=== PATIENT | male | born 1995 | race African-American/Black ===

== ENCOUNTER 2018-05-09 10:22 | Inpatient (IN) | payer BC ==
[~2018-05-09] VITALS: Ht 188 cm; Wt 104.4 kg
[2018-05-09 11:30] VITALS: BP 136/94
[2018-05-09] MEDS ORDERED: ACETAMINOPHEN 325 MG TABLET. PO PRN (13:30)
[2018-05-09] MEDS ORDERED: PRED20TA PO (13:41)
[2018-05-09] MEDS ORDERED: FURO20TA3 PO (13:42)
[2018-05-09 14:41] LABS: HEMATOCRIT 49.3 % (39.0-53.0); HEMOGLOBIN 16.9 g/dL (13.0-17.5); RED BLOOD COUNT 5.89 x10^6/uL (4.30-5.70); RED CELL DISTRIBUTION WIDTH 13.8 % (11.5-14.5); WHITE BLOOD COUNT 8.6 x10^3/uL (4.0-11.0)
[2018-05-09 15:00] VITALS: BP 134/90
[2018-05-09 15:02] LABS: ALBUMIN/GLOBULIN RATIO 0.3 (1.0-1.7); CALCIUM 8.1 mg/dL (8.5-10.1); CREATININE 1.1 mg/dL (0.7-1.3); GFR 100.4; POTASSIUM 3.8 mmol/L (3.5-5.1); TOTAL BILIRUBIN 0.4 mg/dL (0.2-1.0); TOTAL PROTEIN 4.5 g/dL (6.4-8.2)
[2018-05-09 19:00] VITALS: BP 145/93
[2018-05-09] MEDS: FUROSEMIDE 20 MG TABLET PO SCH (19:20)
[2018-05-09 19:40] LABS: BILIRUBIN,URINE NEGATIVE (NEG); CLARITY,URINE CLEAR; COLOR,URINE YELLOW; NITRITE,URINE NEGATIVE (NEG); PH,URINE 6.5; PROTEIN,URINE >=300 mg/dL (NEG-TRACE); UROBILINOGEN,URINE 0.2 mg/dL (0.2 mg/dL)
[2018-05-09 19:54] LABS: BACTERIA,URINE 0 /HPF (0-FEW)
[2018-05-09 19:55] LABS: HYALINE CASTS, URINE OCCASIONAL /HPF
[2018-05-09 23:00] VITALS: BP 143/87
[2018-05-10 03:00] VITALS: BP 138/82
[2018-05-10 07:00] VITALS: BP 141/89
[2018-05-10] MEDS: FUROSEMIDE 20 MG TABLET PO SCH (08:28)
[2018-05-10] MEDS ORDERED: FUROSEMIDE 20 MG TABLET PO SCH (09:00)
--- NOTE | 2018-05-10 10:07 | HP ---
ADMIT DATE: 05/10/2018 HISTORY OF PRESENT ILLNESS: The patient is a 22-year-old male patient who was seen yesterday and was admitted initially under Dr. 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 He apparently was diagnosed initially at the age of 13 at [facility] in [place] and was treated with steroids. He moved to [place], [place] where he was evaluated in [facility] and about 4 years ago he underwent another kidney biopsy, which showed that he has minimal change disease. He stopped all his medication about 18 months ago. He was on prednisone and Diovan and has been doing fine until 2 days ago when he started having nausea, vomiting and weight gain. He apparently gained almost 20 pounds, although he was weighed here yesterday and was weighing 234 pounds. He did complain of some nausea and vomited 2 days ago, but not yesterday. Denied any abdominal pain. Denied any dizziness or lightheadedness. PAST MEDICAL HISTORY: Significant for minimal change disease as well as hypertension. PAST SURGICAL HISTORY: Unremarkable. ALLERGIES: HE IS ALLERGIC TO LISINOPRIL HE DEVELOPED CHRONIC COUGH. MEDICATIONS: He is currently on no medication. FAMILY HISTORY: He has 3 sisters, one brother, all healthy. His father is alive at the age of 42 and has sarcoidosis. Mother is alive at age of 41 and is healthy. SOCIAL HISTORY: He is single, graduated from high school. He does not smoke, drink alcohol or use any recreational drugs. He is currently unemployed. REVIEW OF SYSTEMS: The patient denied any blurring of vision, cataract, glaucoma or macular degeneration. Denied any earache, tinnitus or sensorineural deafness. Denied any nosebleeds, stuffy nose or postnasal drip. Denied any sore throat, sore tongue, toothache, hoarseness of voice or difficulty swallowing. Did complain of some nausea and vomiting and has tendency towards constipation. Denied any hematemesis, melena or hematochezia. Denied any dysuria, frequency or hematuria. Denied any chest pain, shortness of breath, orthopnea or paroxysmal nocturnal dyspnea. Denied any cough, phlegm or hemoptysis. Denied any chills, rigors or fever. PHYSICAL EXAMINATION: GENERAL: When I saw him, he looked well and was clearly in no apparent respiratory distress. No pallor, jaundice, cyanosis, or thyromegaly. No jugular venous distention. I could not really see any lower limb edema. VITAL SIGNS: His heart rate was 73, blood pressure 145/93, temperature was 98.2, respiratory rate was 17 and oxygen saturation was 96% on room air. HEAD, EYES, EARS, NOSE AND THROAT: Showed normocephalic, atraumatic. NECK: Supple. HEART: Showed normal first and second heart sounds with no gallop, rub or murmur. CHEST: Clear to auscultation. No crepitation or rhonchi. ABDOMEN: Distended, soft, nontender. No guarding or rigidity. No organomegaly. All hernial orifices intact. Bowel sounds normal. NEUROLOGIC: He is awake, alert, responding appropriately. All cranial nerves intact. EXTREMITIES: He moves extremities without difficulty, ambulates without assistance or assistive devices. Examination of the lower extremities showed no clubbing, cyanosis, and I do not see really any edema on both lower extremities. His upper extremities seem to be more swollen than his lower extremities. LABORATORY DATA: Showed a serum sodium 136, potassium 3.8, chloride 102, bicarbonate 30, anion gap of 4, BUN 18, creatinine 1.1, estimated GFR was 100 mL per minute. His glucose was 93, calcium was 8.1. Total bilirubin and alkaline phosphatase normal. AST, ALT is slightly elevated. Total protein was 4.5, albumin was 1. His white cell count was 8600, hemoglobin 16.9, hematocrit 49.3, MCV 84 and platelet count 272,000. His urinalysis showed the urine was yellow, clear, his pH was 6.5, specific gravity was 1.020. There was large amount of protein. The urine was negative for glucose, ketones. There was moderate amount of blood, negative for nitrite and leukocyte esterase, 1-2 rbc's, 1-4 wbc's, and no bacteria. IMPRESSION: In summary, this is a 22-year-old male patient with known history of minimal change disease diagnosed when he was 13 years old. His last biopsy was done at [facility] in [place], [place] about 4 years ago and he stopped taking his steroids and Diovan about 18 months ago. He came now complaining of weight gain, nausea and vomiting, and high blood pressure. His urinalysis showed large amount of protein. He has also moderate amount of blood. PLAN: My plan is to get the records from [place], [place], also do a 24-hour urine for proteinuria and creatinine clearance as he seemed to have nephrotic syndrome as he has hematuria and his blood pressure is high, although his kidney functions are normal. He has severe hypoalbuminemia. We will consult the Nephrology team and decide on further management accordingly. RAJWINDER GARCIA MD DR: UMA/dustin JOB#: [id number] / [id number]
[2018-05-10 11:00] VITALS: BP 143/86
[2018-05-10 15:00] VITALS: BP 150/93
--- NOTE | 2018-05-10 16:16 | PDOC2 ---
CONSULT Date of Consult Date of Consult DATE: 05/10/18 TIME: 16:02 Reason for Consult Reason for Consult: Proteinuria, Dx of OSMANY Identification/Chief Complaint Chief Complaint Swelling both arms and back Source Source: Caregiver, Chart review, Patient History of Present Illness Reason for Visit: The patient is a 22-year-old male patient with Dx of OSMANY Dx at the age of 13 yrs . He gas been on prednisone and ws tapered off aprox 18 months ago when he was in [place] as he was in remission He was also on ARB which was dced by MD as per Pt and Mother as his BP was stable . They Moved to [facility] 18 months back and was seen by Dr. Manzo from our group in Mid 2017 . Mom reports they did not go back for Follow up appt as Urine was Normal and Pt was feeling fine He apparently was diagnosed initially at the age of 13 at [facility] in [place] He moved to [place], [place] where he was evaluated in [facility] and about 4 years ago he underwent another kidney biopsy, which showed that he has minimal change disease. He reports 2 days back he started having vomiting and thinks it was due to something he ate . His Mom claims that he eats out a Lot .No F/C/D. No CP . He apparently gained almost 20 pounds, weight here was 234 pounds, he reports his wt has been in 190's Denied any abdominal pain. Denied any dizziness or lightheadedness. No Vomiting today. Main concern is swelling in his arms- though in past he had LE edema. He feels Rt arm improved but Lt worse since IV placed He also feels swelling in his back- Flank and Lower back . No Pain /Tenderness He denies any Hx of Kidney stones . He denies any NSAID's , No OTC meds, Denies any Creatine or AA supplements His average BP is 120's without any meds Current Medications Current Medications Current Medications Acetaminophen (Tylenol) 650 mg PRN Q6HRS PRN PO MILD PAIN / TEMP Last administered on 05/09/18at 18:10; Start 05/09/18 at 13:30 Furosemide (Lasix) 20 mg DAILY PO ; Start 05/10/18 at 09:00; Stop 05/10/18 at 09 :00; Status DC Furosemide (Lasix) 20 mg DAILY PO Last administered on 05/10/18at 08:28; Start 05/09/18 at 18:15 Active Scripts Active Reported Furosemide 20 Mg Tablet 20 Mg PO DAILY Prednisone 20 Mg Tablet 20 Mg PO DAILY Allergies Allergies: Coded Allergies: lisinopril (Verified Allergy, Intermediate, 05/09/18) Wet cough ROS Review of System As per HPI Physical Exam Physical Exam GEN: NAD HEEN: OM moist NECK: Supple, No JVD CVS: RRR, No MGR RESP: CTA, No acc Muscle use GI: BS + ve, NO Bruit, Non Tender, Non Distended : No CVA tenderness, No Suprapubic Tenderness, No Huizar Skin- No rash Ext- Trace LE edema , Lt arm swollen > Rt (mild) Vital Signs Vital Signs Date Time Temp Pulse Resp B/P (MAP) Pulse Ox O2 Delivery O2 Flow Rate FiO2 05/10/18 15:00 97.7 62 20 150/93 (112) 95 Room Air 97.7 Assessment & Plan Minimal Change Disease- Dx at the age of 13, Renal Bx x 2 Was on prednisone , tapered approx 18 Months in [place] Moved to since, seen by Dr. Manzo once last year, didint go for Follow up appt Will obtain Office records and awaiting records from [place] [facility] reviewed , Creat within Normal range 24 Ur Pr in progress, Check US, Pr/Cr StrictI/O, daily standing weight HTN- BP High Not on meds Awaiting labs , will consider starting JENNIFER-I or ARB Lt Upper arm swelling - Order US Vomiting Resolved Likely Gastroenteritis Discussed at great length with patient, his Mom and RN Labs Labs Laboratory Tests Test 05/09/18 14:30 05/09/18 19:27 White Blood Count 8.6 x10^3/uL (4.0-11.0) Red Blood Count 5.89 x10^6/uL (4.30-5.70) Hemoglobin 16.9 g/dL (13.0-17.5) Hematocrit 49.3 % (39.0-53.0) Mean Corpuscular Volume 84 fL (79-100) Mean Corpuscular Hemoglobin 29 pg (25-35) Mean Corpuscular Hemoglobin Concent 34 g/dL (31-37) Red Cell Distribution Width 13.8 % (11.5-14.5) Platelet Count 272 x10^3/uL (140-400) Sodium Level 136 mmol/L (136-145) Potassium Level 3.8 mmol/L (3.5-5.1) Chloride Level 102 mmol/L (98-107) Carbon Dioxide Level 30 mmol/L (21-32) Anion Gap 4 (6-14) Blood Urea Nitrogen 18 mg/dL (8-26) Creatinine 1.1 mg/dL (0.7-1.3) Estimated GFR (Cockcroft-Gault) 100.4 BUN/Creatinine Ratio 16 (6-20) Glucose Level 93 mg/dL (70-99) Calcium Level 8.1 mg/dL (8.5-10.1) Total Bilirubin 0.4 mg/dL (0.2-1.0) Aspartate Amino Transf (AST/SGOT) 47 U/L (15-37) Alanine Aminotransferase (ALT/SGPT) 67 U/L (16-63) Alkaline Phosphatase 66 U/L (46-116) Total Protein 4.5 g/dL (6.4-8.2) Albumin 1.0 g/dL (3.4-5.0) Albumin/Globulin Ratio 0.3 (1.0-1.7) Urine Collection Type Unknown Urine Color Yellow Urine Clarity Clear Urine pH 6.5 Urine Specific [place] 1.020 Urine Protein >=300 mg/dL (NEG-TRACE) Urine Glucose (UA) Negative mg/dL (NEG) Urine Ketones (Stick) Negative mg/dL (NEG) Urine Blood Moderate (NEG) Urine Nitrite Negative (NEG) Urine Bilirubin Negative (NEG) Urine Urobilinogen Dipstick 0.2 mg/dL (0.2 mg/dL) Urine Leukocyte Esterase Negative (NEG) Urine RBC 1-2 /HPF (0-2) Urine WBC 1-4 /HPF (0-4) Urine Bacteria 0 /HPF (0-FEW) Urine Hyaline Casts Occasional /HPF Urine Random Total Protein 1484.0 mg/dL (Not Estab.) Laboratory Tests Test 05/09/18 19:27 Urine Collection Type Unknown Urine Color Yellow Urine Clarity Clear Urine pH 6.5 Urine Specific [place] 1.020 Urine Protein >=300 mg/dL (NEG-TRACE) Urine Glucose (UA) Negative mg/dL (NEG) Urine Ketones (Stick) Negative mg/dL (NEG) Urine Blood Moderate (NEG) Urine Nitrite Negative (NEG) Urine Bilirubin Negative (NEG) Urine Urobilinogen Dipstick 0.2 mg/dL (0.2 mg/dL) Urine Leukocyte Esterase Negative (NEG) Urine RBC 1-2 /HPF (0-2) Urine WBC 1-4 /HPF (0-4) Urine Bacteria 0 /HPF (0-FEW) Urine Hyaline Casts Occasional /HPF Urine Random Total Protein 1484.0 mg/dL (Not Estab.) Review All relevant outside records, renal labs, imaging studies, telemetry/EKG's were reviewed. АНДРЕЙ OLIVER MD May 10, 2018 16:16
[2018-05-10 19:00] VITALS: BP 159/98
[2018-05-10 21:11] LABS: UR PROTEIN RD 2390.1 mg/dL (Not Estab.)
[2018-05-10 23:00] VITALS: BP 145/98
[2018-05-11 03:00] VITALS: BP 130/90
[2018-05-11 07:00] VITALS: BP 130/86
[2018-05-11] MEDS: FUROSEMIDE 20 MG TABLET PO SCH (07:36)
--- NOTE | 2018-05-11 08:18 | RAD ---
Left upper extremity venous ultrasound, 05/10/2018: HISTORY: Left upper extremity swelling Duplex evaluation of the major veins in the left upper extremity was performed including grayscale, color-flow and spectral Doppler analysis. The left internal jugular, subclavian, axillary, brachial, cephalic and basilic veins are all patent. Patent ulnar and radial veins are evident. IMPRESSION: There is no duplex evidence of deep vein thrombosis in left upper extremity. Electronically signed by: Terrell Potter MD (05/11/2018 8:14 AM) [facility]
--- NOTE | 2018-05-11 08:23 | RAD ---
Renal ultrasound, 05/10/2018: HISTORY: Proteinuria The right kidney measures 12.7 cm while the left kidney measures 12.9 cm. There is no evidence of hydronephrosis or a renal mass. The renal parenchymal echogenicity is within normal limits. The bladder is collapsed and not adequately delineated. IMPRESSION: No significant renal abnormality is detected. Electronically signed by: Terrell Potter MD (05/11/2018 8:19 AM) [facility]
--- NOTE | 2018-05-11 09:16 | PN ---
DATE: 05/11/2018 SUBJECTIVE: The patient is resting slightly propped up in bed, in no apparent distress. Continued to collect his 24-hour urine for proteinuria and creatinine clearance. Denied any complaint. He has had renal ultrasound, which showed that his right kidney measured 12.7 cm while the left kidney measured 12.9 cm. There is no evidence of hydronephrosis or renal mass. The renal parenchyma or echogenicity is within normal limits. The ultrasound of his left upper extremity showed no evidence of deep vein thrombosis. OBJECTIVE: GENERAL: On examining him, he looked pale. No jaundice, cyanosis, or thyromegaly. No jugular venous distention. No limb edema. VITAL SIGNS: His heart rate was 83, blood pressure was 130/86, temperature was 97.8, respiratory rate was 16, and oxygen saturation was 93% on room air. The rest of clinical exam is unremarkable, has not really changed. PLAN: To continue with Lasix. Await 24-hour urine collection. RAJWINDER GARCIA MD DR: UMA/dustin JOB#: [id number] / [id number]
[2018-05-11 11:02] VITALS: BP 139/97
[2018-05-11 11:04] LABS: ALBUMIN 0.7 g/dL (3.4-5.0); CALCIUM 7.6 mg/dL (8.5-10.1); CREATININE 1.3 mg/dL (0.7-1.3); GFR 82.8; PHOSPHORUS 4.2 mg/dL (2.6-4.7)
--- NOTE | 2018-05-11 13:18 | PDOC ---
SUBJECTIVE ROS No complaints, swelling improved, eating Lunch OBJECTIVE Vital Signs Vital Signs Date Time Temp Pulse Resp B/P (MAP) Pulse Ox O2 Delivery O2 Flow Rate FiO2 05/11/18 11:02 98.7 74 20 139/97 (111) 94 Room Air 98.7 I & 0 Intake and Output 05/11/18 07:00 Intake Total 840 ml Balance 840 ml Intake Oral 840 ml # Voids 2 PHYSICAL EXAM Physical Exam GEN: NAD HEEN: OM moist NECK: Supple, No JVD CVS: RRR, No MGR RESP: CTA, No acc Muscle use GI: BS + ve, NO Bruit, Non Tender, Non Distended : No CVA tenderness, No Suprapubic Tenderness, No Huizar Skin- No rash Ext- No edema DIAGNOSIS/ASSESSMENT Assessment & Plan Minimal Change Disease- Dx at the age of 13, Renal Bx x 2 Was on prednisone , tapered approx 18 Months in [place] Non compliance in 2014 - when he moved to [place] - had recurrence of OSMANY Was started on prednisone 90 mg QD , prior to that he was on tacrolimus and Steroids at age of 14-15 yrs Moved to since, seen by Dr. Manzo once last year, didint go for Follow up appt Pr/Cr 10 gm , 24 Hr pending , Creat upto 1.3, Severe Hypoalbuminemia Will start Prednisone PO- close to 1 mg/kg /day (90 mg QD), monitor closely CKD stage 2- increased Cr from baseline Plan as above HTN- BP better Not on meds will consider starting JENNIFER-I or ARB Lt Upper arm swelling - US No DVT Resolved Vomiting Resolved Likely Gastroenteritis Discussed at great length with patient, Mom and RN COMMENT/RELEVANT DATA Meds Current Medications Medications (Trade) Dose Ordered Sig/Mushtaq Start Time Stop Time Status Last Admin Dose Admin Acetaminophen (Tylenol) 650 mg PRN Q6HRS PRN 05/09/18 13:30 05/09/18 18:10 650 MG Furosemide (Lasix) 20 mg DAILY 05/09/18 18:15 05/11/18 07:36 20 MG Lab Laboratory Tests Test 05/11/18 10:25 Sodium Level 135 mmol/L (136-145) Potassium Level 4.0 mmol/L (3.5-5.1) Chloride Level 102 mmol/L (98-107) Carbon Dioxide Level 31 mmol/L (21-32) Anion Gap 2 (6-14) Blood Urea Nitrogen 22 mg/dL (8-26) Creatinine 1.3 mg/dL (0.7-1.3) Estimated GFR (Cockcroft-Gault) 82.8 Glucose Level 98 mg/dL (70-99) Calcium Level 7.6 mg/dL (8.5-10.1) Phosphorus Level 4.2 mg/dL (2.6-4.7) Albumin 0.7 g/dL (3.4-5.0) Results All relevant outside records, renal labs, imaging studies, telemetry/EKG's were reviewed. АНДРЕЙ OLIVER MD May 11, 2018 13:18
[2018-05-11] MEDS: PANTOPRAZOLE 40 MG TABLET.DR. PO SCH (13:36)
[2018-05-11] MEDS: predniSONE 20 MG TABLET PO SCH (13:38)
[2018-05-11 15:04] VITALS: BP 134/80
[2018-05-11 19:00] VITALS: BP 145/91
[2018-05-11 23:00] VITALS: BP 141/102
[2018-05-12 02:19] LABS: TOTAL SERUM CREATININE 1.04 mg/dL (0.76-1.27); TOTAL URINE CREATININE 168.8 mg/dL (Not Estab.)
[2018-05-12 03:02] VITALS: BP 154/102
[2018-05-12 07:00] VITALS: BP 144/93
[2018-05-12 07:38] LABS: UR PROTEIN 1692.3 mg/dL (Not Estab.)
[2018-05-12] MEDS: PANTOPRAZOLE 40 MG TABLET.DR. PO SCH (08:44)
[2018-05-12] MEDS: FUROSEMIDE 20 MG TABLET PO SCH (08:44)
[2018-05-12] MEDS: predniSONE 20 MG TABLET PO SCH (08:45)
--- NOTE | 2018-05-12 10:13 | PN ---
DATE: 05/12/2018 SUBJECTIVE: The patient is resting, slightly propped up in bed, eating his breakfast comfortably. On questioning him, he obviously is concerned about his blood pressure which is trending upward. He was started yesterday on prednisone at 90 mg daily. His 24-hour urine collection was completed yesterday; however, I am not really sure exactly how to read the results, it seems that he is losing a huge amount of protein up to 22 grams in 24-hour if my reading is accurate. PHYSICAL EXAMINATION: GENERAL: When I examined him this morning, he looked well and was clearly in no apparent respiratory distress, pale. No jaundice, cyanosis, or thyromegaly. No jugular venous distension. No limb edema. VITAL SIGNS: His heart rate was 96, blood pressure 144/93, temperature was 97.6, respiratory rate was 20, and oxygen saturation was 96%. HEAD, EYES, EARS, NOSE AND THROAT: Normocephalic, atraumatic. The rest of clinical exam is unremarkable. LABORATORY DATA: His most recent lab work as of yesterday showed his serum sodium 135, potassium 4, chloride 102, bicarbonate 31, anion gap of 2, BUN of 22, creatinine 1.3, his estimated GFR was 82 mL per minute. His glucose was 98, calcium was 7.6, phosphorus was 4.2. His serum albumin is only 0.7 g/dL. ASSESSMENT: Minimal change disease, nephrotic syndrome and relapse with nephrotic range proteinuria, for which he was started on a prednisone 90 mg once a day, Protonix as well as furosemide. Blood pressure is high and he apparently has problems with lisinopril before as he developed chronic cough. I will wait for the recommendation by the research manufacturing operator. RAJWINDER GARCIA MD DR: UMA/dustin JOB#: [id number] / [id number]
[2018-05-12 11:00] VITALS: BP 140/94
[2018-05-12 13:16] LABS: ALBUMIN 0.9 g/dL (3.4-5.0); CREATININE 2.6 mg/dL (0.7-1.3); GFR 37.2; PHOSPHORUS 4.7 mg/dL (2.6-4.7); POTASSIUM 4.9 mmol/L (3.5-5.1)
[2018-05-12 13:17] LABS: CHOLESTEROL/HDL RATIO 8.3
[2018-05-12 15:00] VITALS: BP 138/83
--- NOTE | 2018-05-12 16:25 | PDOC ---
SUBJECTIVE ROS No complaints, OBJECTIVE Vital Signs Vital Signs Date Time Temp Pulse Resp B/P (MAP) Pulse Ox O2 Delivery O2 Flow Rate FiO2 05/12/18 11:00 97.1 82 20 140/94 (109) 98 Room Air 97.1 I & 0 Intake and Output 05/12/18 07:00 Intake Total 480 ml Balance 480 ml Intake Oral 480 ml # Voids 6 PHYSICAL EXAM Physical Exam GEN: NAD HEEN: OM moist NECK: Supple, No JVD CVS: RRR, No MGR RESP: CTA, No acc Muscle use GI: BS + ve, NO Bruit, Non Tender, Non Distended : No CVA tenderness, No Suprapubic Tenderness, No Huizar Skin- No rash Ext- No edema DIAGNOSIS/ASSESSMENT Assessment & Plan Minimal Change Disease- Dx at the age of 13, Renal Bx x 2 Was on prednisone , tapered approx 18 Months in [place] Non compliance in 2014 - when he moved to [place] - had recurrence of OSMANY ( Dont have Bx report in Chart ) He Was started on prednisone 90 mg QD , prior to that he was on tacrolimus and Steroids at age of 14-15 yrs Moved to since, seen by Dr. Manzo once last year, as per mom they didn't keep Follow up appt Pr/Cr 10 gm , 24 Hr Pr 22 gm , Creat upto 2.6<--1.3, Severe Hypoalbuminemia , Hypercholesterolemia Started Prednisone PO- 90 mg QD- 1 st dose 05/11 Based on labs Today recommend Renal Bx dw [facility], but Pt wants his mother to make the decision She called back and wants to hold off the renal Bx . She will make decision when she arrives here . She states "he is not a Guinea pig and Treatment can be continued based on his Bx results from [place] " At the time of initial consult I had discussed with at great length Dx and Treatment Options including Steroids and Renal Bx . Initially she claimed that he doesn't need Steroids as she doesn't think he is having a relapse . Yesterday very reluctantly they agreed for PO Prednisone Mom arrived and I had a Lengthy discussion regarding Renal Bx, meds, serologies , prognosis etc . Both Refusing renal bx as well as IV steroids , they want to wait to see response with PO steroids They refused any further Work up including PT/INR. Hyperlipidemia - Start Statin SERGIO - Worsening renal function Has been on Lasix as per primary, DC lasix HTN- Not on meds will consider starting JENNIFER-I or ARB but currently SERGIO Monitor Lt Upper arm swelling - US No DVT Resolved Vomiting Resolved Discussed at great length with patient, Mom and RN COMMENT/RELEVANT DATA Meds Current Medications Medications (Trade) Dose Ordered Sig/Mushtaq Start Time Stop Time Status Last Admin Dose Admin Acetaminophen (Tylenol) 650 mg PRN Q6HRS PRN 05/09/18 13:30 05/09/18 18:10 650 MG Furosemide (Lasix) 20 mg DAILY 05/09/18 18:15 05/12/18 08:44 20 MG Pantoprazole Sodium (Protonix) 40 mg DAILYAC 05/11/18 13:15 05/12/18 08:44 40 MG Prednisone (Prednisone) 90 mg DAILY 05/11/18 14:00 05/17/18 13:59 05/12/18 08:45 90 MG Lab Laboratory Tests Test 05/12/18 11:55 Sodium Level 134 mmol/L (136-145) Potassium Level 4.9 mmol/L (3.5-5.1) Chloride Level 100 mmol/L (98-107) Carbon Dioxide Level 30 mmol/L (21-32) Anion Gap 4 (6-14) Blood Urea Nitrogen 39 mg/dL (8-26) Creatinine 2.6 mg/dL (0.7-1.3) Estimated GFR (Cockcroft-Gault) 37.2 Glucose Level 115 mg/dL (70-99) Calcium Level 8.0 mg/dL (8.5-10.1) Phosphorus Level 4.7 mg/dL (2.6-4.7) Albumin 0.9 g/dL (3.4-5.0) Triglycerides Level 245 mg/dL (0-150) Cholesterol Level 539 mg/dL (0-200) LDL Cholesterol, Calculated 425 mg/dL (0-100) VLDL Cholesterol, Calculated 49 mg/dL (0-40) Non-HDL Cholesterol Calculated 474 mg/dL (0-129) HDL Cholesterol 65 mg/dL (40-60) Cholesterol/HDL Ratio 8.3 Results All relevant outside records, renal labs, imaging studies, telemetry/EKG's were reviewed. АНДРЕЙ OLIVER MD May 12, 2018 16:25
[2018-05-12 19:00] VITALS: BP 136/80
[2018-05-12 22:36] VITALS: BP 139/99
[2018-05-13 02:40] VITALS: BP 142/81
[2018-05-13 07:00] VITALS: BP 141/96
[2018-05-13] MEDS: PANTOPRAZOLE 40 MG TABLET.DR. PO SCH (07:43)
[2018-05-13] MEDS: predniSONE 20 MG TABLET PO SCH (07:44)
[2018-05-13 11:00] VITALS: BP 155/94
--- NOTE | 2018-05-13 12:25 | PN ---
DATE: 05/13/2018 SUBJECTIVE: The patient is resting slightly propped up in bed, in no apparent respiratory distress. He is awake, alert. Denied any complaint. Apparently, Dr. Coombs recommended kidney biopsy, but the patient and his mother refused stating that he is not and treatment can be continued based on his biopsy results from [facility]. However, he has now had hematuria. His blood pressure is high and they also refused IV steroids and reluctantly agreed to p.o. prednisone. His blood pressure continues to be somewhat high and apparently, reacted to lisinopril, so I will start him on losartan 25 mg and see how he responds to that. PHYSICAL EXAMINATION: GENERAL: When I saw him today, he looked well and was clearly in no apparent respiratory distress. VITAL SIGNS: His heart rate was 80, blood pressure was 141/96, temperature was 97.7, respiratory rate 20 and oxygen saturation was 96%. HEENT: Examination of the head, eyes, ears, nose and throat showed normocephalic, atraumatic. NECK: Supple. HEART: Showed normal first and second heart sounds, with no gallop, rub or murmur. CHEST: Clear to auscultation. No crepitation or rhonchi. ABDOMEN: Distended, soft and nontender. No guarding or rigidity. No organomegaly. All hernial orifices intact. Bowel sounds normal. NEUROLOGIC: He was awake, alert and responding appropriately. All cranial nerves intact. He moves extremities without difficulty, ambulates without assistance or assistive devices. His intake was 1414, output recorded. LABORATORY DATA: His most recent lab work as of yesterday showed a serum sodium 134, potassium 4.9, chloride 100, bicarbonate 30, anion gap of 4, BUN 36, creatinine 2.6, estimated GFR was 37 mL per minute, his glucose was 115 and calcium was 8. Phosphorus was 4.7. His serum albumin was only 0.9. His triglycerides were 245, total cholesterol was 539, LDL cholesterol was 425 and HDL cholesterol of 65; the ratio was 8. His estimated GFR as of 2 days ago was 116, but his creatinine has dramatically risen from 1.1 to 2.6. ASSESSMENT: 1. Acute kidney injury. 2. Nephrotic syndrome. 3. Hypertension. 4. His left upper extremity was swollen, but his ultrasound was negative. PLAN: My plan is to obviously consider also DVT prophylaxis, but I will repeat his labs tomorrow to make sure his kidney function is not worsening. RAJWINDER GARCIA MD DR: UMA/dustin JOB#: [id number] / [id number]
--- NOTE | 2018-05-13 13:30 | PDOC ---
PROGRESS NOTES Subjective Subjective I was informed by the patient's nurse that they wished to leave the hospital AMA. Hence patient was not seen. No labs are available for review today Objective Objective Vital Signs Date Time Temp Pulse Resp B/P (MAP) Pulse Ox O2 Delivery O2 Flow Rate FiO2 05/13/18 11:00 97.8 79 20 155/94 (114) 94 Room Air 97.8 Intake and Output 05/13/18 07:00 Intake Total 1440 ml Balance 1440 ml Intake Oral 1440 ml # Voids 5 # Bowel Movements 3 Comment Review of Relevant I have reviewed the following items stacia (where applicable) has been applied. Labs Laboratory Tests Test 05/12/18 11:55 Sodium Level 134 mmol/L (136-145) Potassium Level 4.9 mmol/L (3.5-5.1) Chloride Level 100 mmol/L (98-107) Carbon Dioxide Level 30 mmol/L (21-32) Anion Gap 4 (6-14) Blood Urea Nitrogen 39 mg/dL (8-26) Creatinine 2.6 mg/dL (0.7-1.3) Estimated GFR (Cockcroft-Gault) 37.2 Glucose Level 115 mg/dL (70-99) Calcium Level 8.0 mg/dL (8.5-10.1) Phosphorus Level 4.7 mg/dL (2.6-4.7) Albumin 0.9 g/dL (3.4-5.0) Triglycerides Level 245 mg/dL (0-150) Cholesterol Level 539 mg/dL (0-200) LDL Cholesterol, Calculated 425 mg/dL (0-100) VLDL Cholesterol, Calculated 49 mg/dL (0-40) Non-HDL Cholesterol Calculated 474 mg/dL (0-129) HDL Cholesterol 65 mg/dL (40-60) Cholesterol/HDL Ratio 8.3 Medications Current Medications Acetaminophen (Tylenol) 650 mg PRN Q6HRS PRN PO MILD PAIN / TEMP Last administered on 05/09/18at 18:10; Start 05/09/18 at 13:30 Furosemide (Lasix) 20 mg DAILY PO ; Start 05/10/18 at 09:00; Stop 05/10/18 at 09 :00; Status DC Furosemide (Lasix) 20 mg DAILY PO Last administered on 05/12/18at 08:44; Start 05/09/18 at 18:15; Stop 05/12/18 at 16:12; Status DC Prednisone (Prednisone) 90 mg DAILY PO Last administered on 05/13/18at 07:44; Start 05/11/18 at 14:00; Stop 05/17/18 at 13:59 Pantoprazole Sodium (Protonix) 40 mg DAILYAC PO Last administered on 05/13/18at 07:43; Start 05/11/18 at 13:15 Active Scripts Active Reported Furosemide 20 Mg Tablet 20 Mg PO DAILY Prednisone 20 Mg Tablet 20 Mg PO DAILY Vitals/I & O Vital Sign - Last 24 Hours 05/12/18 05/12/18 05/12/18 05/12/18 15:00 19:00 20:00 22:36 Temp 98.0 97.7 97.5 98.0 97.7 97.5 Pulse 89 74 72 Resp 20 18 18 B/P (MAP) 138/83 (101) 136/80 (98) 139/99 (112) Pulse Ox 97 99 98 O2 Delivery Room Air Room Air Room Air Room Air 05/13/18 05/13/18 05/13/18 05/13/18 02:40 07:00 08:00 11:00 Temp 97.5 97.7 97.8 97.5 97.7 97.8 Pulse 81 80 79 Resp 18 20 20 B/P (MAP) 142/81 (101) 141/96 (111) 155/94 (114) Pulse Ox 96 96 94 O2 Delivery Room Air Room Air Room Air Room Air Intake and Output 05/12/18 05/12/18 05/13/18 15:00 23:00 07:00 Intake Total 200 ml 240 ml 1000 ml Balance 200 ml 240 ml 1000 ml CATE FIGUEROA MD May 13, 2018 13:30
== END 2018-05-13 13:30 | disposition left against medical advice (07) | DRG 684 ==
LOC: 5 SOUTH 11:14
PROVIDERS: ADMIT Internal Medicine; ATTEND Internal Medicine
DX: N17.9 Acute kidney failure, unspecified (principal); N04.0 Nephrotic syndrome with minor glomerular abnormality; I10 Essential (primary) hypertension; E88.09 Other disorders of plasma-protein metabolism, not elsewhere classified; Z53.21 Procedure and treatment not carried out due to patient leaving prior to being seen by health care provider; Z88.8 Allergy status to other drugs, medicaments and biological substances; Z79.899 Other long term (current) drug therapy
CPT/HCPCS: 36415; 76770; 80053; 80061; 80069; 81001; 82570; 82575; 84156; 85027; 93971; J7512

== ENCOUNTER 2018-05-24 06:49 | Outpatient (CLI) | payer BC ==
[~2018-05-24] VITALS: Ht 188 cm; Wt 104.3 kg
[2018-05-24] VITALS (18 sets, daily range): BP systolic 143–162; BP diastolic 88–105
[~2018-05-24 06:49] MED LIST: FURO20TA3 PO; PRED20TA PO
[2018-05-24 07:31] LABS: BASO # 0.1 x10^3/uL (0.0-0.2); BASO % 1 % (0-3); EOS # 0.4 x10^3/uL (0.0-0.7); EOS % 4 % (0-3); HEMATOCRIT 43.7 % (39.0-53.0); LYMPH # 2.8 x10^3/uL (1.0-4.8); LYMPH % 31 % (24-48); MEAN CORPUSCULAR HEMOGLOBIN 29 pg (25-35); MEAN CORPUSCULAR HGB CONC 34 g/dL (31-37); MEAN CORPUSCULAR VOLUME 84 fL (79-100); MONO # 0.6 x10^3/uL (0.0-1.1); MONO % 6 % (0-9); NEUT # 5.1 x10^3uL (1.8-7.7); NEUT % 57 % (31-73); PLATELET COUNT 351 x10^3/uL (140-400); RED BLOOD COUNT 5.21 x10^6/uL (4.30-5.70); RED CELL DISTRIBUTION WIDTH 13.7 % (11.5-14.5); WHITE BLOOD COUNT 8.9 x10^3/uL (4.0-11.0)
[2018-05-24 07:40] LABS: PROTHROMBIN TIME PATIENT 12.1 SEC (11.7-14.0)
[2018-05-24] MEDS ORDERED: LIDOCAINE WITH 8.4% SOD BICARB 3 ML DISP.SYRIN. ONE (07:54)
[2018-05-24] MEDS ORDERED: GELATIN SPONGE SIZE 12-7MM SPONGE. ONE (07:54)
[2018-05-24] MEDS ORDERED: fentaNYL PF VIAL 100 MCG/2 ML VIAL ONE (07:54)
[2018-05-24] MEDS ORDERED: MIDAZOLAM HCL/PF 2 MG/2 ML VIAL. ONE (07:54)
[2018-05-24] MEDS ORDERED: fentaNYL PF VIAL 100 MCG/2 ML VIAL IV ONE (08:15)
[2018-05-24] MEDS ORDERED: MIDAZOLAM HCL/PF 2 MG/2 ML VIAL. IV ONE (08:15)
[2018-05-24] MEDS ORDERED: GELATIN SPONGE SIZE 12-7MM SPONGE. TP ONE (08:15)
[2018-05-24] MEDS ORDERED: LIDOCAINE WITH 8.4% SOD BICARB 3 ML DISP.SYRIN. IJ ONE (08:15)
--- NOTE | 2018-05-24 09:59 | PDOC ---
MODERATE SEDATION ASSESSMENT RISKS/ALTERNATIVES Risks/Alternatives Risks and alternatives of this type of sedation and procedure discussed with: RISK/ALTERNATIVES: Patient H & P ON CHART H & P H & P on chart and reviewed for co-morbid conditions and appropriate labs. H&P ON CHART: Yes STATUS PREG STATUS ASSESSED: Yes MEDS/ALLERGIES REVIEWED Meds/Allergies Reviewed Medications and Allergies including time and route of recently administered narcotics and sedatives. MEDS/ALLERGIES REVIEWED: Yes ASA RATING ASA RATING: II AIRWAY ASSESSMENT Airway Assessment Airway patency, oral function limitations, presence of caps, crowns, dentures, partials, and ability to extend neck assessed. AIRWAY ASSESSMENT: Yes MALLAMPATI SCORE MALLAMPATI SCORE: II PRE-SEDATION ASSESSMENT PRE-SEDATION ASSESSMENT: Yes BERNARD LEVY MD May 24, 2018 09:59
--- NOTE | 2018-05-24 10:00 | PDOC1 ---
History and Physical Date of Procedure Date of Admission History of Present Illness Reason for Visit renal failure Past Medical History Past Medical History see nursing pre-op assessment Current Medications Current Medications Current Medications Lidocaine/Sodium Bicarbonate (Buffered Lidocaine 1%) 3 ml STK-MED ONCE .ROUTE ; Start 05/24/18 at 07:54; Stop 05/24/18 at 07:55; Status DC Midazolam HCl (Versed) 2 mg STK-MED ONCE .ROUTE ; Start 05/24/18 at 07:54; Stop 05/24/18 at 07:56; Status DC Fentanyl Citrate (Fentanyl 2ml Vial) 100 mcg STK-MED ONCE .ROUTE ; Start at 07:54; Stop 05/24/18 at 07:56; Status DC Gelatin (Gelfoam Size 12-7mm) 1 each STK-MED ONCE .ROUTE ; Start 05/24/18 at 07:54; Stop 05/24/18 at 07:56; Status DC Lidocaine/Sodium Bicarbonate (Buffered Lidocaine 1%) 3 ml 1X ONCE IJ Last administered on 05/24/18at 09:01; Start 05/24/18 at 08:15; Stop 05/24/18 at 08 :18; Status DC Midazolam HCl (Versed) 2 mg 1X ONCE IV Last administered on 05/24/18at 09:01; Start 05/24/18 at 08:15; Stop 05/24/18 at 08:18; Status DC Fentanyl Citrate (Fentanyl 2ml Vial) 100 mcg 1X ONCE IV Last administered on 05/24/18at 09:01; Start 05/24/18 at 08:15; Stop 05/24/18 at 08:18; Status DC Gelatin (Gelfoam Size 12-7mm) 1 each 1X ONCE TP Last administered on at 09:00; Start 05/24/18 at 08:15; Stop 05/24/18 at 08:18; Status DC Active Scripts Active No Active Prescriptions or Reported Medications Allergies Allergies: Coded Allergies: lisinopril (Verified Allergy, Intermediate, 05/09/18) Wet cough Physical Exam Vital Signs Vital Signs Date Time Temp Pulse Resp B/P (MAP) Pulse Ox O2 Delivery O2 Flow Rate FiO2 05/24/18 09:55 67 16 95 Room Air 05/24/18 09:08 2.0 05/24/18 07:32 98.1 150/96 (114) 98.1 Other see nursing assessment Assessment Assessment renal failure Plan Plan US biopsy BERNARD LEVY MD May 24, 2018 10:00
--- NOTE | 2018-05-24 15:29 | RAD ---
Procedure: Ultrasound-guided left renal biopsy Clinical Indication: Adult male with abnormal renal function Sedation: Conscious sedation was administered with a total intraprocedural kgwv-dm-gydw time of 22 minutes. The patient was monitored by a qualified independent observer throughout the time of sedation. Please refer to the medical record for exact doses of medications utilized to achieve moderate sedation. Antibiotics: None Sterility: The procedure was performed in its entirety using appropriate elements of sterile technique. Consent: The procedure was explained in its entirety to the patient or the patients designated student services representative by a member of the treatment team, including a discussion of the risks, benefits and commonly accepted alternatives to the procedure, as well as the expected consequences of no therapy whatsoever. Discussion of the risks included, but was not limited to, those that are most frequent and those that are rare but possibly severe or life-threatening, as well as the possibility of unforeseen complications. Technique and Findings: Following informed consent, the patient was prepped and draped in the usual sterile fashion. Ultrasound interrogation of the left kidney revealed no hydronephrosis. 1% lidocaine was used to achieve local anesthesia. A small dermatotomy was made. Under ultrasound guidance, a 17-gauge guide was advanced into the posterior inferior pole and 8 separate 18-gauge core biopsy specimens were obtained from various regions of the inferior pole. Specimens were divided between Ken's solution and formalin. Gelfoam pledgets were applied as the needle guide was removed and hemostasis was achieved with manual compression. Complications: No immediate Impression: 1. Ultrasound-guided biopsy of the left kidney as described
--- NOTE | 2018-05-24 15:38 | RAD ---
Procedure: Ultrasound-guided left renal biopsy Clinical Indication: Adult male with abnormal renal function Sedation: Conscious sedation was administered with a total intraprocedural owhz-hf-mosy time of 22 minutes. The patient was monitored by a qualified independent observer throughout the time of sedation. Please refer to the medical record for exact doses of medications utilized to achieve moderate sedation. Antibiotics: None Sterility: The procedure was performed in its entirety using appropriate elements of sterile technique. Consent: The procedure was explained in its entirety to the patient or the patients designated member services representative by a member of the treatment team, including a discussion of the risks, benefits and commonly accepted alternatives to the procedure, as well as the expected consequences of no therapy whatsoever. Discussion of the risks included, but was not limited to, those that are most frequent and those that are rare but possibly severe or life-threatening, as well as the possibility of unforeseen complications. Technique and Findings: Following informed consent, the patient was prepped and draped in the usual sterile fashion. Ultrasound interrogation of the left kidney revealed no hydronephrosis. 1% lidocaine was used to achieve local anesthesia. A small dermatotomy was made. Under ultrasound guidance, a 17-gauge guide was advanced into the posterior inferior pole and 8 separate 18-gauge core biopsy specimens were obtained from various regions of the inferior pole. Specimens were divided between Ken's solution and formalin. Gelfoam pledgets were applied as the needle guide was removed and hemostasis was achieved with manual compression. Complications: No immediate Impression: 1. Ultrasound-guided biopsy of the left kidney as described DICTATED and SIGNED BY: BERNARD LEVY MD DATE: 05/24/18 1523 [facility]
--- NOTE | 2018-05-29 15:07 | PATHOLOGY ---
[facility] Accession Number: [id number] . 01 Material submitted: . IMAGE GUIDED RENAL BIOPSY . 01 Clinical history: . Nephrotic syndrome . 02 Diagnosis: Special studies report received from [facility] [employer] [facility], [address] [place] [address], [facility] [address] [address], on case [id number], labeled with their number [id number], dated 05/26/2018. . Specimen submitted: By Allyn Manzo MD For Kidney, biopsy . DIAGNOSIS: Consistent with Minimal Change Disease. . Global Glomerulosclerosis (). . Clinical History: The patient is a 22 year-old male who presents for evaluation of relapse of his minimal change disease. The patient was diagnosed with minimal change disease at age 13. The patient stopped all of his medications about 18 months ago. Lab evaluation reveals a creatinine of 1.1. Urinalysis reveals proteinuria. . Gross Description: Received from [facility] via [facility] are two specimen bottles; one bottle contains formalin and the other contains Eduard's fixative. The bottles are labeled with the patient's name (Rajiv Gilliam) and outside number ([id number]). . Received in formalin are seven pieces of tissue measuring 0.3 x 0.1 x 0.1 cm (villarreal), 0.5 x 0.1 x 0.1 cm (villarreal, bloody), 0.8 x 0.1 x 0.1 cm (villarreal), 1.4 x 0.1 x 0.1 cm (villarreal), 2.0 x 0.1 x 0.1 cm (villarreal with a fatty end), and two at 1.6 x 0.1 x 0.1 cm (villarreal) . Two ends are submitted for electron microscopy and the remainder of the tissue is submitted in its entirety for light microscopy. . Received in Eduard's fixative are eight pieces of villarreal tissue measuring 0.3 x 0.1 x 0.1 cm, 0.4 x 0.1 x 0.1 cm (fatty), 0.6 x 0.1 x 0.1 cm 0.8 x 0.1 x 0.1 cm, 0.9 x 0.1 x 0.1 cm, 1.2 x 0.1 x 0.1 cm (bloody end), and 1.5 x 0.1 x 0.1 cm. The specimen is submitted in its entirety for immunofluorescence microscopy. . Microscopic Description: LIGHT MICROSCOPY: . Tissue submitted for light microscopic examination is represented by 50% cortex and 50% medulla. There are up to 20 glomeruli present, two of which are globally sclerotic. The glomeruli ranges from normal to mildly enlarged in size and normocellular with patent capillary lumina and glomerular basement membrane of normal thickness. There is no evidence of endocapillary proliferation, necrosis, or crescent formation. No overt evidence of segmental scarring is identified. No significant tubular atrophy or interstitial fibrosis is seen. The tubules display changes of patchy tubular injury. Patchy interstitial inflammation composed of predominantly lymphoid cells is identified. Focal extravasation of [place]-Horsfall protein is seen. Focal tubulointerstitial calcification (calcium phosphate) is identified. Blood vessels exhibit no significant intimal fibrosis. No evidence of arteritis is identified. Toluidine blue-stained sections for electron microscopy show four glomeruli, one of which is globally sclerotic. . Standard of care requirements for proper analysis of renal biopsies mandates serial sections, and PAS, [place] silver, trichrome and SMMT stains at multiple levels. PAS stains are used to evaluate various aspects of the glomerular, tubular, and vascular basement membranes. [place] silver stains are used to evaluate thickening, reduplication, "spiking" or "bubbling" of the glomerular basement membrane. Toluidine blue stained sections highlight glomerular basement membranes and demonstrates unusual types of deposits. It also reveals details of tubular epithelial cells and aids in the analysis of vascular lesions. Dory trichrome stains are used to evaluate interstitial fibrosis and basement membrane deposits. The SMMT stain helps evaluate basement membrane changes, immune deposits and tubulointerstitial scarring. Controls are routinely run on all special stains and are verified for acceptability. A review of the technical quality of routine slides is made before results are reported. . IMMUNOFLUORESCENCE: The sections are stained for IgG, IgM, IgA, C3, C1q, albumin, fibrinogen, and kappa and lambda light chains. Twenty-four glomeruli are present for evaluation including four globally sclerotic. All stains are negative in glomeruli. There is no significant extraglomerular staining. [place] and lambda stain equally throughout the tubulointerstitium. . Positive and negative controls are run on all immunofluorescent stains and are verified for acceptability before results are reported. Internal antigens serve as positive controls. . ELECTRON MICROSCOPY: Two blocks are prepared. Ultrastructural evaluation of a glomerulus reveals basement membranes which are uniform and are of normal thickness. No immune-type electron-dense deposits are present along the glomerular basement membranes or within the mesangium. There is widespread epithelial foot process effacement and microvillus transformation of the podocytes. The tubular basement membranes are without deposits. . Special procedures including immunofluorescence and electron microscopy correlate with the light microscopy findings. . Note: Some of the tests reported here may have been developed and performance characteristics determined by [employer]. They have not been cleared or approved by the U.S. Food and Drug Administration (FDA). The FDA does not require this test to go through premarket FDA review. This test is used for clinical purposes. It should not be regarded as investigational or for research. [employer] [employer] [facility] is certified under the Clinical Laboratory Improvement Amendments of 1988 (CLIA) as qualified to perform high complexity clinical laboratory testing. . Physician/Physician's office called on 05/26/2018 at 2:38 PM Central. . *I have reviewed the clinical history, the pertinent gross findings, all microscopic materials, discussed the case with the clinician when appropriate, and have rendered the final diagnosis. . CPT Codes Performed: 25066; 34531r8; 66465; 92038; 26008; 53649-CC; 09186c6 lCD Codes: T86.10 . Final Diagnosis performed by Jose Martin Black M.D. Electronically signed 05/26/2018 4:07:39 PM . . A complete copy of the report is on file. . Professional and technical services performed by [facility] at [address] [facility], [place] [address], [place], [address]. . ([facility] 05/29/2018) . This case was prepared and proofread by Dr. Carlos Manuel Perez and electronically signed and released by Dr. Rohit Paige. . (JPM:matthew; 05/29/2018) [facility]/05/29/2018 . 02 Electronically signed: . Wilbur Paige MD, Pathologist NPI- [id number] . 01 Gross description: . The specimen is received in formalin, labeled "Rajiv Gilliam, left renal biopsy". Received are five needle cores of pale villarreal soft tissue ranging in length from 0.6 to 2.1 cm, with each measuring 0.1 cm in diameter. The specimen is forwarded to an outside laboratory for further processing. . Also received is a container of Eduard's fixative, labeled "Rajiv Gilliam, left renal". Received are seven needle cores of pink-villarreal soft tissue ranging in length from 0.4 to 1.4 cm, with each measuring 0.1 cm in diameter. The specimen is forwarded for outside laboratory for direct immunofluorescence studies. (CAA; 05/24/2018) QAC/QAC . 02 Pathologist provided ICD-10: N04.9 . 02 CPT . 692099 Specimen Comment: A courtesy copy of this report has been sent to Specimen Comment: [phone], . Specimen Comment: Report sent to / DR MANZO [facility]formed at: 01 [facility] [address] [facility] [address], [place] [id number] MD Tonny Bass MD Phone: [phone] Performed at: 02 [facility] [address] [place], [place] [id number] MD Carlos Manuel Perez MD Phone: [phone]
== END 2018-05-24 12:00 | disposition home or self-care (01) ==
LOC: INTRAD 06:49
PROVIDERS: ATTEND Internal Medicine Nephrology
DX: N04.0 Nephrotic syndrome with minor glomerular abnormality (principal); N26.9 Renal sclerosis, unspecified; N17.9 Acute kidney failure, unspecified; Z79.899 Other long term (current) drug therapy; Z88.8 Allergy status to other drugs, medicaments and biological substances
CPT/HCPCS: 36415; 50200; 76942; 85025; 85610; 99152; J2250; J3010; 99153

== ENCOUNTER → 2018-05-31 | Outpatient (CLI) | payer BC ==
[2018-05-24 11:51] VITALS: BP 158/95
[2018-05-31 10:28] LABS: HEMATOCRIT 46.2 % (39.0-53.0); HEMOGLOBIN 15.9 g/dL (13.0-17.5)
[2018-05-31 10:49] LABS: ALBUMIN 1.5 g/dL (3.4-5.0); CALCIUM 8.5 mg/dL (8.5-10.1); PHOSPHORUS 3.3 mg/dL (2.6-4.7); POTASSIUM 3.5 mmol/L (3.5-5.1)
[2018-05-31 13:20] LABS: BILIRUBIN,URINE NEGATIVE (NEG); CLARITY,URINE CLEAR; COLOR,URINE YELLOW; NITRITE,URINE NEGATIVE (NEG); PROTEIN,URINE NEGATIVE (NEG-TRACE); UROBILINOGEN,URINE 0.2 mg/dL (0.2 mg/dL)
[2018-05-31 13:24] LABS: BACTERIA,URINE FEW /HPF (0-FEW)
[2018-05-31 13:25] LABS: HYALINE CASTS, URINE OCCASIONAL /HPF
[2018-05-31 19:15] LABS: MICROALB RD UR 55.3 ug/mL (Not Estab.); UR PROTEIN RD 14.6 mg/dL (Not Estab.)
== END | disposition home or self-care (01) ==
LOC: LAB 10:05
PROVIDERS: ATTEND Internal Medicine Nephrology
DX: N04.0 Nephrotic syndrome with minor glomerular abnormality (principal); N18.1 Chronic kidney disease, stage 1
CPT/HCPCS: 36415; 80069; 81001; 82043; 82570; 84156; 85014; 85018